=== PATIENT | female | born 1995 | race Caucasian/White ===

== ENCOUNTER 2016-09-27 18:11 | Emergency (ER) | payer BC, MEDICAID ==
[~2016-09-27 18:11] MED LIST: PRENATAL VITAM1 EA11 PO
[2016-09-27] MEDS ORDERED: SYNTHROID88 MC1 PO (20:04)
[2016-09-27 21:09] LABS: URINE BILIRUBIN NEGATIVE (NEG); URINE BLOOD NEGATIVE (NEG); URINE GLUCOSE (UA) NEGATIVE (NEG); URINE KETONE NEGATIVE (NEG); URINE LEUKOCYTE ESTERASE NEGATIVE (NEG); URINE NITRITE NEGATIVE (NEG); URINE PROTEIN NEGATIVE (NEG); URINE SPECIFIC GRAVITY 1.015 (1.003-1.030)
[2016-09-27 21:17] LABS: URINE APPEARANCE CLEAR; URINE COLOR YELLOW
== END 2016-09-27 21:47 ==
LOC: EDMED 18:11
PROVIDERS: Emergency Medicine
DX: O99.89 Other specified diseases and conditions complicating pregnancy, childbirth and the puerperium (principal); R19.7 Diarrhea, unspecified; Z20.828 Contact with and (suspected) exposure to other viral communicable diseases